=== PATIENT | male | born 1985 | race Caucasian/White ===

== ENCOUNTER 2021-08-02 15:13 | Observation (INO) | payer OTHER ==
[~2021-08-02] VITALS: Ht 205.7 cm; Wt 97.0 kg
[2021-08-02] MEDS ORDERED: fentaNYL 100 MCG/2 ML INJECTION (J3010) IV ONE ×2 (16:00→17:00)
[2021-08-02] MEDS ORDERED: MORPHINE 2 MG/ML 1ML VIAL (J2270) IV PRN (17:35)
--- OUTSIDE RECORDS SUMMARY | 2021-08-02 17:51 | CCD ---
Author Author [facility] Address Unknown Phone Unavailable Support Name Relationship Address Phone [facility] Next Of Kin [address] [place] [address] Unavailable Re-disclosure Warning The records that you are about to access may contain information from federally-assisted alcohol or drug abuse programs. If such information is present, then the following federally mandated warning applies: This information has been disclosed to you from records protected by federal confidentiality rules (42 CFR part 2). The federal rules prohibit you from making any further disclosure of this information unless further disclosure is expressly permitted by the written consent of the person to whom it pertains or as otherwise permitted by 42 CFR part 2. A general authorization for the release of medical or other information is NOT sufficient for this purpose. The Federal rules restrict any use of the information to criminally investigate or prosecute any alcohol or drug abuse patient.The records that you are about to access may contain highly sensitive health information, the redisclosure of which is protected by Article 27-F of the [facility] Public Health law. If you continue you may have access to information: Regarding HIV / AIDS; Provided by facilities licensed or operated by the [facility] Office of Mental Health; or Provided by the [facility] Office for People With Developmental Disabilities. If such information is present, then the following [facility] mandated warning applies: This information has been disclosed to you from confidential records which are protected by state law. State law prohibits you from making any further disclosure of this information without the specific written consent of the person to whom it pertains, or as otherwise permitted by law. Any unauthorized further disclosure in violation of state law may result in a fine or senior living sentence or both. A general authorization for the release of medical or other information is NOT sufficient authorization for further disc losure. Medications No Information Insurance Providers Payer name Policy type / Coverage type Policy ID Covered republican ID Covered republican's relationship to lazcano Policy [employer] Plan [facility] [employer] [id number] Problems, Conditions, and Diagnoses No Information Surgeries/Procedures No Information Results No Information Social History No Information
[2021-08-02 17:59] LABS: BASO # 0.1 10^3/uL (0.0-0.2); BASO % 0.5 % (0.0-1.0); EOS % 0.1 % (0.0-3.0); HEMATOCRIT 43.9 % (42.0-52.0); HEMOGLOBIN 14.8 g/dl (13.5-17.5); LYMPH # 1.6 10^3/uL (1.5-5.0); LYMPH % 14.1 % (24.0-44.0); MEAN CORPUSCULAR HEMOGLOBIN 31.3 pg (27.0-33.0); MEAN CORPUSCULAR HGB CONC 33.7 g/dl (32.0-36.5); MEAN CORPUSCULAR VOLUME 92.8 fl (80.0-96.0); MONO # 0.5 10^3/uL (0.0-0.8); MONO % 4.4 % (2.0-8.0); NEUTROPHILS # 9.2 10^3/uL (1.5-8.5); NEUTROPHILS % 80.6 % (36.0-66.0); PLATELET COUNT, AUTOMATED 332 10^3/uL (150-450); RED BLOOD COUNT 4.73 10^6/uL (4.30-6.10); WHITE BLOOD COUNT 11.5 10^3/uL (4.0-10.0)
[2021-08-02 18:09] LABS: INR 1.04; PROTHROMBIN TIME 14.1 SECONDS (12.7-14.5)
--- NOTE | 2021-08-02 18:14 | REP ---
INDICATION: C-ARM needed for L ankle reduction. COMPARISON: Radiographs at [place]. 08/02/2021. TECHNIQUE: Multiple C-arm views left ankle. FINDINGS: Distal tibial and fibular fractures are noted. The osseous structures are all to live well aligned. IMPRESSION: 19 seconds fluoroscopy time utilized. <Electronically signed by Jase Danielle > 08/02/21 [id number]
[2021-08-02 18:25] LABS: BLOOD UREA NITROGEN 17 MG/DL (7-18); CALCIUM LEVEL 8.9 MG/DL (8.5-10.1); CARBON DIOXIDE LEVEL 30 MEQ/L (21-32); CHLORIDE LEVEL 107 MEQ/L (98-107); CREATININE FOR GFR 1.32 MG/DL (0.70-1.30); GLOMERULAR FILTRATION RATE > 60.0 (>60); GLUCOSE, FASTING 105 MG/DL (70-100); POTASSIUM SERUM 4.4 MEQ/L (3.5-5.1); SODIUM LEVEL 140 MEQ/L (136-145)
[2021-08-02 18:47] LABS: RSV AMPLIFICATION NEGATIVE (NEGATIVE)
[2021-08-02] MEDS ORDERED: VITMTA PO (19:06)
[2021-08-02] MEDS ORDERED: FISH1000 PO (19:06)
[2021-08-02] MEDS ORDERED: HOME MED LIST COMPLETE! XX SCH (19:10)
--- NOTE | 2021-08-02 19:13 | HPEPDOC ---
[facility] Medical History & Physical Date of Admission Aug 02, 2021 Date of Service: Aug 02, 2021 Attending Physician: Jennifer Henson MD History and Physical CHIEF COMPLAINT: left ankle fracture HISTORY OF PRESENT ILLNESS: Patient is a 35-year-old male with no significant past medical history who pr esented to [facility] emergency room after injury to his left ankle. The patient states he was working out when a piece of gym equipment fell onto his left ankle. He had an x-ray done immediately following the injury on [place] showing distal tibial and fibular fractures. He was sent in to [facility] emergency room for further evaluation and treatment by orthopedic surgery. In the emergency room blood pressure was elevated likely secondary to uncontrolled pain. Patient was given fentanyl for pain control which helped. Orthopedic surgery saw the patient and aligned fracture. Post treatments x-ray showed distal tibial and fibular fractures were aligned. The patient was admitted to medicine service for distal tibial and fibular fractures s/p trauma with plans for taking to surgery on 08/03/[address] Cota. REVIEW OF SYSTEMS: CONSTITUTIONAL: Denies lack of energy, unexplained weight gain or weight loss, loss of appetite, fever, night sweats EYES: Denies eye drainage, eye pain, visual changes, dry/irritated eye EARS, NOSE, MOUTH, THROAT: Denies difficulty hearing, ringing in ears, mouth sores, loose teeth, sore throat, facial numbness or pain NECK: Denies swollen glands CARDIOVASCULAR: Denies irregular heartbeat, racing heart, chest pains, swelling of feet or legs, pain in legs with walking RESPIRATORY: Denies shortness of breath, night sweats, wheezing, sputum production, oxygen at home, coughing up blood, cough lasting > 1 month GASTROINTESTINAL: Denies abdominal pain, constipation, bloody stool, diarrhea, heartburn, nausea, vomiting GENITOURINARY: Denies painful urination, bloody urine, frequent urination, urgency, leaking urine, impotence MUSCULOSKELETAL: Denies leg swelling INTEGUMENTARY: Denies rash, itching, new skin lesion, change in existing skin lesion, hair loss or increase, breast changes. NEUROLOGICAL: Denies headaches, dizziness, difficulty walking, numbness or tingling PSYCHIATRIC: Denies depression, anxiety, recurrent bad thoughts, mood swings, hallucinations PAST MEDICAL HISTORY: No significant past medical history PAST SURGICAL HISTORY: Rhinoseptoplasty Molar tooth removal FAMILY HISTORY: No significant past medical history. The patient states his mother and his father are healthy and alive. No malignancy or heart disease in his family. SOCIAL HISTORY: Denies smoking, illicit drug use. He drinks alcohol socially. He is active duty . ALLERGIES: Please see below. HOME MEDICATIONS: Please see below. PHYSICAL EXAMINATION: CONSTITUTIONAL: No acute distress, resting comfortably, AAO x 3 EYES: PERRLA, EOM intact HENT, MOUTH: Normocephalic, atraumatic, moist mucous membranes NECK: SUPPLE, no JVD, no lymphadenopathy, no carotid bruit CV: Regular rate and rhythm, S1S2 normal, no murmurs/rubs/gallops RESPIRATORY: Clear to auscultation bilaterally, no rales/rhonchi/wheezes GI: BS positive in 4 quadrants, soft, nontender, nondistended, no rebound or guarding, no organomegaly : Deferred MUSCULOSKELETAL: LLE cast in place, no ROM testing of LLE. No cyanosis, clubbing, swelling INTEGUMENTARY: Intact, no rashes, no lesions, no erythema NEUROLOGIC: Cranial Nerves II-XII are intact, no focal deficits PSYCHIATRIC: Mood and affect are normal LABORATORY DATA: Please see below IMAGING: Left ankle XR (repeat after allignment): Distal tibial and fibular fractures are noted. The osseous structures are all to live well aligned. ASSESSMENT: 35-year-old male with no significant past medical history admitted to medicine service for distal tibial and fibular fractures s/p trauma with plans for taking to surgery on 08/03/[address] Cota. PLAN: Distal tibial and fibular fractures s/p trauma -S/p alignment -CXR post alignment above -OR 08/03/[address] Cota DVT px -Teds on RLE for now DISPOSITION: Admitted observation status. Ortho consulted. May be possible d/c after surgery 08/03/21 Vital Signs Vital Signs Date Time Temp Pulse Resp B/P (MAP) Pulse Ox O2 Delivery O2 Flow Rate FiO2 08/02/21 17:15 20 08/02/21 15:33 97.4 79 187/108 (134) 98 Room Air Laboratory Data Labs 24H Laboratory Tests 2 08/02/21 17:43: Prothrombin Time 14.1H, Prothromb Time International Ratio 1.04, Activated Partial Thromboplast Time 22.0L 08/02/21 17:45: Immature Granulocyte % (Auto) 0.3, Neutrophils (%) (Auto) 80.6H, Lymphocytes (%) (Auto) 14.1L, Monocytes (%) (Auto) 4.4, Eosinophils (%) (Auto) 0.1, Basophils (%) (Auto) 0.5, Neutrophils # (Auto) 9.2H, Lymphocytes # (Auto) 1.6, Monocytes # (Auto) 0.5, Eosinophils # (Auto) 0.0, Basophils # (Auto) 0.1, Nucleated Red Blood Cells % (auto) 0.0, Anion Gap 3L, Glomerular Filtration Rate > 60.0, Calcium Level 8.9, Coronavirus (COVID-19)(PCR) NEGATIVE, Influenza Type A (RT- PCR) NEGATIVE, Influenza Type B (RT-PCR) NEGATIVE, Respiratory Syncytial Virus (PCR) NEGATIVE CBC/BMP Laboratory Tests 08/02/21 17:45 Allergies Coded Allergies: No Known Allergies (Unverified , 08/02/21) A-FIB/CHADSVASC A-FIB History Current/History of A-Fib/PAF?: No Current PO Anticoag Therapy: No Age/Risk Factor Scoring CHADSVASC: CHADSVASC Response (Comments) Value Age Risk Factor Age < 65 years old 0 Gender Risk Factor Male 0 Hx of CHF No 0 Hx of HTN No 0 Hx of Stroke/TIA/or VTE No 0 Hx of Diabetes No 0 Hx of Vascular Disease No 0 Total 0 Treatment Other anticoagulant ordered: Jennifer Woodson MD Aug 02, 2021 19:13
[2021-08-02 21:05] VITALS: BP 168/80
--- NOTE | 2021-08-02 21:07 | REPVR ---
PROCEDURE INFORMATION: Exam: CT Left Lower Extremity Without Contrast, Ankle Exam date and time: 08/02/2021 6:42 PM Age: 35 years old Clinical indication: Injury or trauma; Fall; Blunt trauma; Ankle; Left; Additional info: Left ankle FX, reduced TECHNIQUE: Imaging protocol: CT of the Left lower extremity without contrast was performed. Exam focused on the ankle. Radiation optimization: All CT scans at this facility use at least one of these dose optimization techniques: automated exposure control; mA and/or kV adjustment per patient size (includes targeted exams where dose is matched to clinical indication); or iterative reconstruction. COMPARISON: CR ANKLE, LEFT - OUTSIDE PRIOR 08/02/2021 2:00 PM FINDINGS: Bones/joints: There is a Pederson B fracture of the distal fibula which is now reduced and nondisplaced. Slightly comminuted oblique fracture of the medial malleolus is now reduced, minimally displaced. This is contiguous with a whole punch type fracture in the anteromedial tibial plafond with impaction along the anterior aspect of up to 8 mm and along the posterior aspect of up to 4 mm. The punch component measures 7 mm medial-lateral by 7 mm anterior-posterior. Finally, there is a small intra-articular chip fracture at the anterior articular margin of the tibial plafond with 1 mm impaction. Alignment at the tibiotalar joint is now near anatomic. There is minimal widening of the medial clear space, but medial and anterior subluxation has essentially resolved. No other fracture. Talar dome appears intact. Small sclerotic lesion in the base of the 2nd metatarsal, most likely a bone island. Soft tissues: Thin lenticular hypodense fluid at the medial distal lower leg in the subcutaneous fat. Edema and hematomas at the ankle joint medially and laterally, less so anteriorly. There is edema and minimal fluid in the pre Achilles fat. Ankle joint hemarthrosis. The posterior tibial tendon extends very slightly into the posterior margin of the medial malleolar fracture as on series 202, image 41 and therefore may be partially entrapped. IMPRESSION: 1. Successful interval reduction of ankle fracture subluxation, with distal fibular fracture in anatomic position and medial medial malleolar fracture in near anatomic position. Small punch fracture of the anteromedial tibial plafond with up to 8 mm of impaction 2. Posterior tibial tendon may be partially entrapped, interdigitating slightly into the posterior margin of the medial malleolar fracture. 3. Soft tissue swelling and subcutaneous hematomas at the ankle, and small amount of hypodense subcutaneous fluid in the medial distal lower leg as well. Ankle joint hemarthrosis as well. Electronically signed by: Arielle De La Garza On 08/02/2021 21:06:56 PM
[2021-08-02] MEDS: ACETAMINOPHEN TAB 650MG DOSE (2X325MG) PO PRN (21:13)
[2021-08-02] MEDS: MORPHINE 4 MG/ML 1ML VIAL/SYRINGE (J2270) IV PRN (22:45)
[2021-08-03 04:54] VITALS: BP 170/82
[2021-08-03] MEDS: MORPHINE 4 MG/ML 1ML VIAL/SYRINGE (J2270) IV PRN (04:54)
[2021-08-03] MEDS ORDERED: MIDAZOLAM INJ 2MG/2ML VIAL (J2250 PER 1MG) IV PRN (07:01)
[2021-08-03] MEDS: ACETAMINOPHEN TAB 650MG DOSE (2X325MG) PO PRN (07:47)
--- NOTE | 2021-08-03 08:22 | ER ---
ER CONSULTATION DATE: 08/02/2021 TIME OF CONSULT: 6 p.m. CONSULTING SERVICE: Orthopedic surgery. CONSULTING PHYSICIAN: Shun Cota MD HISTORY OF PRESENT ILLNESS: This is a 35-year-old male who sustained a left ankle bimalleolar ankle fracture which was closed. The patient was working out at the [employer] and the squat rack landed on his left ankle in which the patient sustained a left ankle fracture. The fracture involved the medial malleolus as well as distal fibula. There appeared to be no posterior malleolar fracture. Orthopedic surgery was consulted for the aforementioned injury. The patient underwent closed reduction, new splint placement and admission for surgery of the left ankle. PAST MEDICAL HISTORY: Patient denies. PAST SURGICAL HISTORY: Patient denies. SOCIAL HISTORY: Nonsmoker, social drinker. ALLERGIES TO MEDICATIONS: Denies. CURRENT MEDICATIONS: Denies. REVIEW OF SYSTEMS: 14-point review of systems was negative unless otherwise described in the HPI above. PHYSICAL EXAMINATION: The patient had tenderness to palpation about the left ankle. Skin was closed. There was no open fracture. The left lower extremity had minimal edema, minimal ecchymosis with obvious deformity with medial translation of the talus as well as anterior translation of the talus prior to reduction. The patient otherwise had 5/5 motor strength of the EHL, FHL, tibialis anterior, gastrocnemius, and peroneal musculature. He had sensation intact to light touch of the deep and superficial peroneal, sural, saphenous and tibial nerve distributions. 2+ dorsalis pedis and posterior tibial arterial pulses. Brisk capillary refill to the digits. LABORATORY DATA: IMAGING DATA: Radiographs demonstrate a displaced medial malleolus and distal fibular shaft fracture. Syndesmosis appeared to be intact and there did not appear to be any posterior malleolar fractures. IMPRESSION: 35-year-old male with aforementioned left bimalleolar closed ankle fracture. PLAN: At this point in time the patient will be admitted by the Hospitalist Service. He was closed reduced by the orthopedic surgeon and placed in a well padded L&U splint with three-point mold in order to hold his talus reduced in ankle mortise. After admission he will be made NPO midnight for left ankle open reduction and internal fixation on the July,. He will undergo the aforementioned procedure. He will undergo COVID testing and likely be discharged on July,.
[2021-08-03] MEDS ORDERED: MORPHINE 4 MG/ML 1ML VIAL/SYRINGE (J2270) IV PRN (09:55)
[2021-08-03] MEDS ORDERED: MORPHINE 2 MG/ML 1ML VIAL (J2270) IV PRN ×2 (09:55→17:50)
[2021-08-03 12:00] VITALS: BP 195/95
[2021-08-03] MEDS ORDERED: MIDAZOLAM INJ 2MG/2ML VIAL (J2250 PER 1MG) As Ordered ONE (12:55)
[2021-08-03] MEDS ORDERED: fentaNYL 100 MCG/2 ML INJECTION (J3010) As Ordered ONE (12:55)
[2021-08-03] MEDS ORDERED: dexameTHASONE 10MG/1ML VIAL PRES.FREE (J1100 PER 1MG) XX ONE (13:05)
[2021-08-03] MEDS ORDERED: LIDOCAINE 1% MDV 20ML VIAL XX ONE (13:05)
[2021-08-03] MEDS ORDERED: ROPIvacaine 0.5% 30ML INJECTION (J2795 PER 1MG) XX ONE (13:05)
[2021-08-03] MEDS: fentaNYL 100 MCG/2 ML INJECTION (J3010) IV PRN ×2 (13:44→14:01)
[2021-08-03] MEDS ORDERED: ceFAZolin 2 GM/D5W 50 ML IV BAG (J0690 PER 500MG) As Ordered ONE (14:20)
[2021-08-03] MEDS ORDERED: TRANEXAMIC ACID 100 MG/ML 10ML VIAL As Ordered ONE (14:21)
--- NOTE | 2021-08-03 15:40 | IPNPDOC ---
Date Seen The patient was seen on 08/03/21. Progress Note SUBJECTIVE: Pain uncontrolled over the evening, medications modified in the computer. OR today. Denies chest pain, shortness of breath, fevers, chills, nausea, vomiting. OBJECTIVE PHYSICAL EXAMINATION: CONSTITUTIONAL: No acute distress, resting comfortably, AAO x 3 EYES: PERRLA, EOM intact HENT, MOUTH: Normocephalic, atraumatic, moist mucous membranes NECK: SUPPLE, no JVD, no lymphadenopathy, no carotid bruit CV: Regular rate and rhythm, S1S2 normal, no murmurs/rubs/gallops RESPIRATORY: Clear to auscultation bilaterally, no rales/rhonchi/wheezes GI: BS positive in 4 quadrants, soft, nontender, nondistended, no rebound or guarding, no organomegaly : Deferred MUSCULOSKELETAL: LLE cast in place, no ROM testing of LLE. No cyanosis, clubbing, swelling INTEGUMENTARY: Intact, no rashes, no lesions, no erythema NEUROLOGIC: Cranial Nerves II-XII are intact, no focal deficits PSYCHIATRIC: Mood and affect are normal LABORATORY DATA: Please see below IMAGING: CT LLE: 1. Successful interval reduction of ankle fracture subluxation, with distal fibular fracture in anatomic position and medial medial malleolar fracture in near anatomic position. Small punch fracture of the anteromedial tibial plafond with up to 8 mm of impaction 2. Posterior tibial tendon may be partially entrapped, interdigitating slightly into the posterior margin of the medial malleolar fracture. 3. Soft tissue swelling and subcutaneous hematomas at the ankle, and small amount of hypodense subcutaneous fluid in the medial distal lower leg as well. Ankle joint hemarthrosis as well. Left ankle XR (repeat after reduction ): Distal tibial and fibular fractures are noted. The osseous structures are all to live well aligned. ASSESSMENT: 35-year-old male with no significant past medical history admitted to medicine service for distal tibial and fibular fractures s/p trauma with plans for taking to surgery on 08/03/[address] Cota. PLAN: Distal tibial and fibular fractures s/p trauma -S/p reduction and ortho to take to OR today -CXR and CT LLE post reduction above -OR 08/03/[address] Biedron DVT px -Teds on RLE for now DISPOSITION: Admitted observation status. Ortho consulted. May be possible d/c after surgery 08/03/21 VS, I&O, 24H, Fishbone Vital Signs/I&O Vital Signs Date Time Temp Pulse Resp B/P (MAP) Pulse Ox O2 Delivery O2 Flow Rate FiO2 08/03/21 14:05 51 18 135/65 (88) 98 Nasal Cannula 3.0 08/03/21 04:54 98.2 I&O- Last 24 Hours up to 6 AM 08/03/21 05:59 Intake Total 200 ml Output Total 400 ml Balance -200 ml Laboratory Data 24H LABS Laboratory Tests 2 08/02/21 17:43: Prothrombin Time 14.1H, Prothromb Time International Ratio 1.04, Activated Partial Thromboplast Time 22.0L 08/02/21 17:45: Immature Granulocyte % (Auto) 0.3, Neutrophils (%) (Auto) 80.6H, Lymphocytes (%) (Auto) 14.1L, Monocytes (%) (Auto) 4.4, Eosinophils (%) (Auto) 0.1, Basophils (%) (Auto) 0.5, Neutrophils # (Auto) 9.2H, Lymphocytes # (Auto) 1.6, Monocytes # (Auto) 0.5, Eosinophils # (Auto) 0.0, Basophils # (Auto) 0.1, Nucleated Red Blood Cells % (auto) 0.0, Anion Gap 3L, Glomerular Filtration Rate > 60.0, Calcium Level 8.9, Coronavirus (COVID-19)(PCR) NEGATIVE, Influenza Type A (RT- PCR) NEGATIVE, Influenza Type B (RT-PCR) NEGATIVE, Respiratory Syncytial Virus (PCR) NEGATIVE CBC/BMP Laboratory Tests 08/02/21 17:45 Jennifer Henson MD Aug 03, 2021 15:40
[2021-08-03] MEDS: VANCOMYCIN 1000MG/20ML VIAL As Ordered ONE (16:26)
[2021-08-03] MEDS ORDERED: VANCOMYCIN 1000MG/20ML VIAL As Ordered ONE (16:30)
--- NOTE | 2021-08-03 17:18 | REP ---
INDICATION: LEFT ANKLE ORIF. COMPARISON: 08/02/2021. TECHNIQUE: Multiple C-arm views left ankle. FINDINGS: Metallic internal fixation placed in the distal tibia and fibula for fractures at those locations. The osseous structures are well-aligned. The ankle mortise is anatomic. IMPRESSION: 142 seconds of fluoroscopy time was utilized. <Electronically signed by Jase Danielle > 08/03/21 [id number]
[2021-08-03] MEDS ORDERED: ONDANSETRON 4MG/2ML VIAL IV PRN (17:50)
[2021-08-03] MEDS ORDERED: oxyCODONE 5MG TAB PO PRN (17:50)
[2021-08-03] MEDS ORDERED: LR 1,000 ML IV SCH (17:50)
[2021-08-03] MEDS ORDERED: fentaNYL 100 MCG/2 ML INJECTION (J3010) IV PRN (17:50)
[2021-08-03] MEDS ORDERED: MEPERIDINE INJ 25 MG/ML VIAL (J2175) As Ordered ONE (17:58)
[2021-08-03] MEDS: MEPERIDINE INJ 25 MG/ML VIAL (J2175) IV PRN ×2 (18:09→18:14)
[2021-08-03] MEDS ORDERED: COLA100C5 PO (18:16)
[2021-08-03] MEDS ORDERED: ASPI81CH33 PO (18:16)
[2021-08-03] MEDS ORDERED: OXYC1TAB23 PO (18:16)
[2021-08-03] MEDS ORDERED: ZOFR4TAB16 PO (18:16)
[2021-08-03 18:35] VITALS: BP 146/77
[2021-08-03 19:05] VITALS: BP 173/81
--- NOTE | 2021-08-03 20:01 | DS.PDOC ---
Discharge Summary General Date of Admission Aug 02, 2021 at 15:14 Date of Discharge 08/03/21 Attending Physician: Jennifer Henson MD Discharge Summary HISTORY OF PRESENT ILLNESS: Patient is a 35-year-old male with no significant past medical history who presented to [facility] emergency room after injury to his left ankle. The patient states he was working out when a piece of gym equipment fell onto his left ankle. He had an x-ray done immediately following the injury on [place] showing distal tibial and fibular fractures. He was sent in to [facility] emergency room for further evaluation and treatment by orthopedic surgery. In the emergency room blood pressure was elevated likely secondary to uncontrolled pain. Patient was given fentanyl for pain control which helped. Orthopedic surgery saw the patient and reduced fracture, placed in a splint. Post treatments x-ray showed distal tibial and fibular fractures were aligned. The patient was admitted to medicine service for distal left tibial and fibular fractures s/p trauma with plans for taking to surgery on 08/03/[address] Cota. HOSPITAL COURSE: Overnight the patient had hypotension with systolics 160s. His pain was uncontrolled and this was attributed to that. Morphine was adjusted. That afternoon he was taken for ORIF of the left ankle with Synthes. The patient tolerated the procedure well. Postoperatively the patient had no acute com plaints. He was discharged home to follow-up with surgery next week. The office will be calling him to schedule that appointment. He should report any increased swelling, pain, redness to the orthopedic clinic [facility]. PAST MEDICAL HISTORY: No significant past medical history PAST SURGICAL HISTORY: Rhinoseptoplasty Molar tooth removal FAMILY HISTORY: No significant past medical history. The patient states his mother and his father are healthy and alive. No malignancy or heart disease in his family. SOCIAL HISTORY: Denies smoking, illicit drug use. He drinks alcohol socially. He is active duty . ALLERGIES: Please see below. Discharge MEDICATIONS: Please see below. PHYSICAL EXAMINATION: Vital signs: Please see below CONSTITUTIONAL: No acute distress, resting comfortably, AAO x 3 EYES: PERRLA, EOM intact HENT, MOUTH: Normocephalic, atraumatic, moist mucous membranes NECK: SUPPLE, no JVD, no lymphadenopathy, no carotid bruit CV: Regular rate and rhythm, S1S2 normal, no murmurs/rubs/gallops RESPIRATORY: Clear to auscultation bilaterally, no rales/rhonchi/wheezes GI: BS positive in 4 quadrants, soft, nontender, nondistended, no rebound or guarding, no organomegaly : Deferred MUSCULOSKELETAL: LLE cast in place, no ROM testing of LLE. No cyanosis, clubbing, swelling INTEGUMENTARY: Intact, no rashes, no lesions, no erythema NEUROLOGIC: Cranial Nerves II-XII are intact, no focal deficits PSYCHIATRIC: Mood and affect are normal IMAGING: CT LLE: 1. Successful interval reduction of ankle fracture subluxation, with distal fibular fracture in anatomic position and medial medial malleolar fracture in near anatomic position. Small punch fracture of the anteromedial tibial plafond with up to 8 mm of impaction 2. Posterior tibial tendon may be partially entrapped, interdigitating slightly into the posterior margin of the medial malleolar fracture. 3. Soft tissue swelling and subcutaneous hematomas at the ankle, and small amount of hypodense subcutaneous fluid in the medial distal lower leg as well. Ankle joint hemarthrosis as well. Left ankle XR (repeat after reduction ): Distal tibial and fibular fractures are noted. The osseous structures are all to live well aligned. ASSESSMENT: 35-year-old male with no significant past medical history admitted to medicine service for distal tibial and fibular fractures s/p trauma with plans for taking to surgery on 08/03/[address] Cota. PLAN: Distal tibial and fibular fractures s/p ORIF with Synthes -CXR and CT LLE post reduction above -To follow-up with Dr. Cota in office next week. -Aspirin for DVT prophylaxis, Percocet, Colace, Zofran when necessary sent to pharmacy -He should report any increased swelling, pain, redness of the ankle her surgical sites DVT px -Aspirin 81 daily TIME SPENT ON DISCHARGE: 35 minutes. Vital Signs/I&Os Vital Signs Date Time Temp Pulse Resp B/P (MAP) Pulse Ox O2 Delivery O2 Flow Rate FiO2 08/03/21 19:05 97.5 74 16 173/81 (111) 95 Room Air 08/03/21 17:50 10.0 I&O- Last 24 Hours up to 6 AM 08/03/21 06:00 Intake Total 200 ml Output Total 400 ml Balance -200 ml Discharge Medications Scheduled Aspirin (Aspirin) 81 Mg Tab.chew, 81 MG PO DAILY for pain Docusate Sodium (Colace) 100 Mg Capsule, 1 CAP PO BID Multivitamins (Thera M Plus Tablet) 1 Each Tablet, 1 TAB PO DAILY, (Reported) [place]-3 Fatty Acids/Fish Oil (Fish Oil 1,000 mg Capsule) 1 Each Capsule, 1,000 MG PO DAILY, (Reported) Scheduled PRN Ondansetron HCl (Zofran) 4 Mg Tablet, 1 TAB PO TIDP PRN for NAUSEA Oxycodone HCl/Acetaminophen (Oxycodone-Acetaminophen 5-325) 1 Each Tablet, 1 TAB PO TIDP PRN for pain Allergies Coded Allergies: No Known Allergies (Unverified , 08/02/21) Jennifer Henson MD Aug 03, 2021 20:01
--- NOTE | 2021-08-03 21:28 | RO ---
OPERATIVE NOTE DATE OF OPERATION: 08/03/2021 TIME: 4 p.m. PREOPERATIVE DIAGNOSIS: POSTOPERATIVE DIAGNOSIS: NAME OF OPERATION: Left ankle open reduction and internal fixation and internal fixation. SURGEON: Shun Cota MD DAIRY CLERK: None. SUPERVISING ATTENDING: Shun Cota MD FINDINGS: The patient had a closed left ankle fracture to include the distal fibula as well as the medial malleolus with an intact syndesmosis. INDICATIONS: This was a 35-year-old male who sustained a left ankle closed bimalleolar fracture after a squat rack fell onto his left ankle on the July,. After the squat rack fell on the patient's left ankle, the patient had a fracture dislocation of the left ankle and presented to the [facility] for further evaluation and treatment. The patient underwent a left ankle open reduction and internal fixation today for his unstable left bimalleolar ankle fracture. ANESTHESIA: GETA. TOURNIQUET TIME: 120 minutes. ESTIMATED BLOOD LOSS: 50 mL. IV FLUIDS: Please see anesthesia report. IV ANTIBIOTICS: 3 gm of Ancef. IMPLANTS: Synthes. CULTURES: None. SPECIMENS: None. DESCRIPTION OF PROCEDURE: The patient was met in the preoperative holding area where the patient's operative extremity was signed, the patient's consent was confirmed to be correct, and the patient's identity was confirmed to be correct. The patient was then transported to the operating theater where he was placed in supine position on a regular surgical flat-top bed with a radiolucent extension. A safety strap secured the patient to the bed. All bony prominences were well padded. The contralateral lower extremities had SCD placed. A timeout was called which confirmed the correct patient, correct operative extremity and correct consent. All staff were in agreement. We began the case by obtaining fluoroscopic imaging of the patient's left ankle to identify the fracture lines. We then marked out skin incisions for a distal fibula open reduction and internal fixation. I incised the skin sharply using a scalpel and then used meticulous hemostasis to make my way to the periosteum of the distal fibula. I incised the periosteum sharply, identified the fracture which was then cleaned using a scalpel and a hemostat. The fracture was then reduced. I placed a 3-hole distal fibular locking plate into position and secured this with thin wires. We then obtained fluoroscopy and ensured that we were satisfied with both fracture reduction as well as plate placement. I secured the distal fibular plate distally using one cortical screw and three distal interlocking screws. I then used eccentric drilling technique of the first cortical screw hole proximal to the fracture site in order to compress through the plate. I then secured it additionally with two additional cortical screws for a total of three cortical screws proximal to the fracture site. I obtained AP, mortise and lateral views to ensure I was satisfied with the distal fibular fracture reduction as well as the implant placement. I then tuned my attention to the medial malleolar fracture. I marked out the skin incision over the medial malleolus and incised the skin sharply and then used meticulous hemostasis to make my way to the medial malleolar fracture. I incised the periosteum using a scalpel. I identified the fracture and used a dental pick in order to book open the fracture site. It was then cleaned using normal saline as well as a hemostat and scalpel. I then identified the impacted medial shoulder of the distal tibia of which there was an approximately 2x2 mm depressed distal tibia osteochondral fragment. This was tamped down into position. However, the cartilage was significantly damaged and it was not able to be stabilized in position. This fragment was excised given the extensive damage and inability to hold in its position. However, this did allow me to reduce the medial malleolar anatomic position which was then secured using a [id number] bone-reducing clamp. I then placed two thin K-wires orthogonal to the fracture site beginning at the apex of the medial malleolar fragment for provisional fixation. I then obtained a lateral and AP view to ensure that I was satisfied with the two superimposed thin K-wires which were holding the medial malleolar fragment in position. I then overdrilled each of these two superimposed K-wires on the AP view. I then placed a 50 mm followed by a 48 mm partially threaded 4.0 mm cannulated screw which was then advanced over the thin wires in order to compress across the fracture site. This compressed nicely and allowed both compression across the medial malleolar fracture as well as the rotational stability. Once the two 4.0 mm cannulated screws were positioned, I removed the thin wires, removed the [id number] bone reducing clamp. I obtained a mortise view and then performed a dorsiflexion, external rotation stress to ensure that the syndesmosis was intact, it was. I then completed final fluoroscopic imaging with a lateral view, demonstrated I was satisfied with the implant placement as well as the fracture reduction of both the distal fibula as well as the medial malleolus. I then copiously irrigated both medial and lateral surgical sites and placed one gram of vancomycin powder on the distal fibular plate as well as within the medial incision. I closed the periosteum over the distal fibular plate with 0 Vicryl followed by dermal closure of 2-0 Vicryl and skin closure by 3-0 nylon in uninterrupted fashion. I closed the medial incision using 2-0 Vicryl for the dermal layer and 3-0 nylon in a running fashion. I placed Xeroform over both surgical sites followed by 4x4 gauze, ABD pads and Webril and placed the patient's left ankle in a well-padded L&U splint. The patient was then extubated without complication, transferred to the postanesthesia care unit. The patient will be nonweightbearing to the left lower extremity for two weeks. He will follow up in the [facility] in two weeks for postoperative wound check. He will follow the left ankle open reduction and internal fixation rehabilitative protocol. His care will be transferred to the hospitalist service of Dr. Henson and he will be given the appropriate postoperative medication to include 81 mg of aspirin for 30 days once daily, Zofran, Colace and a two week supply of Percocet. The patient will follow up in our clinic next as well for administrative paperwork to include his con leave.
== END 2021-08-03 22:00 | disposition home or self-care (01) ==
LOC: M ED 15:13 → EDBD 15:13 → M ED INP 15:14 → M MS5PR 20:35
PROVIDERS: ADMIT Internal Medicine; ATTEND Internal Medicine
DX: S82.842A Displaced bimalleolar fracture of left lower leg, initial encounter for closed fracture (principal); Y92.39 Other specified sports and athletic area as the place of occurrence of the external cause; Y93.B9 Activity, other involving muscle strengthening exercises; Y99.9 Unspecified external cause status
CPT/HCPCS: 27814; 64445; 73700; 76000; 80048; 85025; 85610; 85730; 86850; 86900; 86901; 87631; 96374; 96375; 96376; 99284; C1713; J0690; J1100; J2175; J2250; J2270; J2405; J2795; J3010; J3370